=== PATIENT | male | born 2000 | race Caucasian/White ===

== ENCOUNTER 2023-12-03 16:45 | Outpatient (CLI) | payer MEDICARE, MEDICAID, SELFPAY ==
[2023-12-03 14:47] LABS: INR 1.1 (0.9-1.1); Prothrombin Time 11.1 sec (9.1-11.1)
== END 2023-12-03 16:46 | disposition home or self-care (01) ==
LOC: LBO 16:46
PROVIDERS: PCP Family Medicine; Visit Provider Family Medicine
DX: Z51.81 Encounter for therapeutic drug level monitoring (principal)
CPT/HCPCS: 36415; 85610

== ENCOUNTER 2023-12-06 03:46 | Outpatient (CLI) | payer MEDICARE, MEDICAID, SELFPAY ==
[2023-12-06 16:22] LABS: Prothrombin Time 10.2 sec (9.1-11.1)
== END 2023-12-06 03:47 | disposition home or self-care (01) ==
LOC: LBO 03:46
PROVIDERS: PCP Family Medicine; Visit Provider Family Medicine
DX: Z51.81 Encounter for therapeutic drug level monitoring (principal)
CPT/HCPCS: 36415; 85610

== ENCOUNTER 2023-12-08 11:01 | Emergency (ER) | payer MEDICARE, MEDICAID, SELFPAY ==
[2023-12-08 11:03] VITALS: BP 116/86; PULSE 89; RESP 14; TEMP 37; O2SAT 98
--- NOTE | 2023-12-08 11:20 | ED.GENADUL_ITS ---
Discharge Plan Disposition Patient Disposition: Home Condition: Stable Discharge Details Clinical Impression: Chest pain of uncertain etiology Primary Care Provider: Baldo Mcintosh ED Provider: Ryan Quick Home Meds and New Rx's Prescriptions: No Action Unable to Obtain Discharge Instructions Instructions: Cyclobenzaprine, Chest Pain, Adult ED Additional Instructions: You were seen in the emergency department for your left-sided chest pain, you have extensive clot history and are having trouble titrating up your Coumadin to an adequate INR. We did perform a CT scan which showed no pulmonary embolism, your labs are reassuring for no sign of severe infection, please follow-up with your primary care provider about the INR we gisella today and seek medication adjustment, otherwise please take 1000 mg of Tylenol every 6 hours for your left-sided chest pain that could be due to musculoskeletal chest pain or costochondritis. I have also sent you home with 3 tabs of a muscle relaxer of cyclobenzaprine, apply gentle heat to the area of pain, you may apply topical Voltaren gel which is an [id number] topical anti-inflammatory to the area of pain before trial of relief. Please return to the emergency department for failure to improve, worsening chest pain with shortness of breath, dizziness, diaphoresis or sweating, nausea, coughing up of blood, developing fever cough. Referrals: Baldo Mcintosh [Primary Care Provider] - Discharge Data Discharge Date/Time-TO BE ENTERED AT DEPARTURE: 12/08/23 15:01 HPI General Date/Time Provider Initiated Documentation: 12/08/23 11:20 . HPI Narrative: 23 year-old male presents to ED today by POV/ambulating with a chief complaint of left-sided chest pain with history of DVT this past May secondary to drug use with onset for the past few days affecting his sleep. Quality described as left-sided pleuritic chest pain, no radiation to tachycardia, shortness of breath endorsed sometimes, denies hemoptysis cough or fever. Severity is mellissa cribed as moderate. Palliating factors include nothing specific attempted. Provoking factors include nothing specific. Events leading up to the incident/Associated Symptoms: Patient is having difficulty titrating his INR with Coumadin dose changes managed by outpatient provider. Patient is anticoagulated. Related Data Home Medications ?Medication ?Instructions ?Recorded ?Confirmed Unknown [Unable to Obtain] 12/08/23 12/08/23 Allergies Allergy/AdvReac Type Severity Reaction Status Date / Time acetaminophen (From Tylenol) AdvReac Unknown Unknown Verified 12/08/23 11:10 ibuprofen (From Advil) AdvReac Unknown Unknown Verified 12/08/23 11:10 General Stated Complaint: Nk/Back Pain AILEEN: 4 Review of Systems All systems reviewed & are unremarkable except as noted in HPI and below Exam Narrative Exam Narrative: GENERAL APPEARANCE: Well-nourished, non-toxic, awake and alert, atraumatic, no acute distress. SKIN: Warm, pink, dry, intact, without rashes/lesions/ulcerations. HEAD: Normocephalic, atraumatic, normal hair distribution for gender/age. EYES: Normal conjunctiva, no exudates on lids/lashes. ENT: Nares patent, no circumoral cyanosis, no facial swelling NECK: Supple, trachea midline, painless cervical ROM. LUNGS/CHEST: Lungs CTA bilaterally- no rhonchi/rales/wheezes diffusely, no focally diminished or absent lung sounds, non-labored respirations, normal A/P diameter, symmetrical expansion, no chest wall deformity, L chest tenderness HEART (CV/PV): Regular rate and rhythm without murmur, no peripheral edema, no JVD. ABDOMEN: Soft, non-distended, no guarding. MSK: Normal ROM, no swelling/deformity to bilateral UEs or LEs, moving all extremities without weakness, no cyanosis, spine midline without tenderness, normal curvature. NEURO: Mental Status AAOx4 - alert to person, place, time, events No facial droop, no forehead involvement. Motor: No focal weakness - strength 5/5 in bilateral UEs and LEs, proximal and distal, symmetric. Sensory: sensation intact to light touch globally. Gait normal: patient ambulated without ataxia into ED room. PSYCH: euthymic, cooperative, pleasant, appropriate speech Course Vital Signs Vital signs: Vital Signs Temperature 37.0 C 12/08/23 11:03 Pulse 89 12/08/23 11:03 Respiratory Rate 14 12/08/23 11:03 Blood Pressure 116/86 12/08/23 11:03 Pulse Oximetry 98 12/08/23 11:03 Temperature 37.0 C 12/08/23 11:03 Temperature Source Skin 12/08/23 11:03 Pulse 89 12/08/23 11:03 Respiratory Rate 14 12/08/23 11:03 Blood Pressure 116/86 12/08/23 11:03 Pulse Oximetry 98 12/08/23 11:03 Oxygen Delivery Method Room Air 12/08/23 11:03 Oxygen Flow Rate 0 12/08/23 11:03 Pain Level 5 12/08/23 11:03 Medical Decision Making This dictation utilizes [id number] dictation software and may contain unedited grammatical errors. 23 year-old male presents to ED today by POV/ambulating with a chief complaint of left-sided chest pain with history of DVT this past May secondary to drug use with onset for the past few days affecting his sleep. Quality described as left-sided pleuritic chest pain, no radiation to tachycardia, shortness of breath endorsed sometimes, denies hemoptysis cough or fever. Severity is described as moderate. Palliating factors include nothing specific attempted. Provoking factors include nothing specific. Events leading up to the incident/Associated Symptoms: Patient is having difficulty titrating his INR with Coumadin dose changes managed by outpatient provider. Patients' medical history: History of DVT with fasciotomy to the leg. Family and social history: Noncontributory, denies current substance abuse. Pertinent exam findings / vital signs include no unilateral leg swelling or skin changes, has pleuritic left-sided chest pain without cardiac abnormality to auscultation, lungs CTA. Differential / pathologies of concern include PE, pneumothorax, pneumonia, costochondritis, ACS. Diagnostic studies of: -CBC, CMP, PT/PTT, troponin I, CTA of the chest, EKG -CBC without leukocytosis, baseline anemia -He is subtherapeutic on his Coumadin - INR -1.2 I recommend he follow-up with outpatient provider -CMP benign -Troponin negative with reliable onset -CTA shows no pulmonary embolism, no pneumothorax, no pneumonia -EKG shows sinus rhythm at 70 bpm with normal axis, normal intervals, no ST changes of ischemia, no [id number] Interventions of: -Recommend he trial topical Voltaren conservative pain management at home with hot compresses, provided muscle relaxer. ED Course/Assessment/Plan: 23-year-old male presents with left-sided chest tenderness and chest pain, he does have a history of DVT due to substance abuse, CT of the chest ruled out PE and he has no signs of infection or pneumonia or pneumothorax, troponin is negative and EKG is benign, I counseled the patient on likely costochondritis and conservative management at home with strict return criteria for further chest pain especially shortness of breath or hemoptysis, recommend he follow-up with his primary care provider for management on Coumadin dosing as he has been subtherapeutic on INR. Findings not consistent with PE, pneumonia, ACS, pneumothorax. Disposition of chest pain of uncertain etiology. Patient verbalized understanding of the plan and return to ED criteria and engaged in shared decision making. Medical Records Medical records reviewed: Yes I reviewed the patient's medical records. Imaging Data Radiologic Study: Attestation: I personally reviewed and interpreted this imaging study as follows: Imaging: CT Scan Radiologist's impression: EXAM: CT CHEST PE CTA CLINICAL HISTORY: L chest pain; hx DVT. TECHNIQUE: Imaging Protocol: Axial CT angiography was performed with multi- slice acquisition and multi-planar and/or 3D reconstructions. CONTRAST MATERIAL: Intravenous: Omnipaque 350 contrast volume:100 mL COMPARISON: No exams were available for comparison FINDINGS: Tracheobronchial tree: Patent where visualized. No bronchiectasis. Pulmonary parenchyma: No consolidation or dominant measurable mass. No architectural distortion. Pulmonary Arteries: No evidence of filling defect to suggest pulmonary emboli. Mediastinum and Fatimah: No dominant adenopathy or fluid collection. The esophagus is unremarkable. Visualized thyroid gland: Unremarkable. Pleura: There does appear to be a tiny right pleural effusion. No left pleural effusion. No pneumothorax. Heart: The heart is not dilated. No coronary artery calcifications are seen. No pericardial effusion. Aorta: Thoracic aorta non-dilated. No evidence of dissection. Upper abdomen: There is a 3.1 cm simple cyst at the tail of the pancreas. The spleen has a lobulated contour this may reflect prior trauma or surgery. Please correlate clinically. Soft tissues: Unremarkable. Bones: Within normal limits for the patient's age. IMPRESSION: 1. No evidence of pulmonary embolism, thoracic aortic dissection or aneurysm. 2. No acute pulmonary process. 3. Question of a tiny right pleural effusion. Lab Data Lab results reviewed: Yes I reviewed the patient's lab results. Labs: Laboratory Tests Range/Units 12/08/23 12/08/23 12:28 12:28 WBC (4.4-10.8) 10^3/uL 5.04 RBC (4.36-5.78) 10^6/uL 4.17 L Hgb (13.5-17.5) g/dL 11.2 L Hct (40.0-50.0) % 36.8 L MCV (80-95) fL 88 MCH (27.0-33.0) pg 26.9 L MCHC (32.0-36.0) % 30.4 L RDW (11.8-14.1) % 14.6 H Plt Count (130-400) 10^3/uL 679 H MPV (8.0-11.0) fL 8.4 Immature Gran % % 1.2 Neutrophils % % 44.0 Lymphocytes % % 36.3 Monocytes % % 16.1 Eosinophils % % 1.2 Basophils % % 1.2 Nucleated RBC % (0.0-0.3) % 0.0 Absolute Neutrophils (1.2-6.7) 10^3/uL 2.22 Absolute Lymphocytes (1.2-3.4) 10^3/uL 1.83 Absolute Monocytes (0.1-0.8) 10^3/uL 0.81 H Absolute Eosinophils (0.0-0.7) 10^3/uL 0.06 Absolute Basophils (0.0-0.2) 10^3/uL 0.06 PT (9.1-11.1) sec 12.3 H INR (0.9-1.1) 1.2 H APTT (23.6-32.8) sec 27.3 Sodium (136-145) mmol/L 142 Potassium (3.5-5.1) mmol/L 3.6 Chloride (98-107) mmol/L 109 H Carbon Dioxide (21.0-32.0) mmol/L 26.8 Anion Gap (3-11) mmol/L 6.2 BUN (7-18) mg/dL 9 Creatinine (0.70-1.30) mg/dL 1.0 Est GFR (CKD-EPI 2020) (mL/min/1.73m2) 107.78 Glucose (74-106) mg/dL 91 Calcium (8.5-10.1) mg/dL 8.5 Total Bilirubin (0.2-1.0) mg/dL 0.16 L AST (15-37) U/L 9 L ALT (16-63) U/L 15 L Alkaline Phosphatase (46-116) U/L 65 Troponin I (< or =60) ng/L < 50 Cancelled Total Protein (6.4-8.2) g/dL 6.5 Albumin (3.4-5.0) g/dL 2.0 L Quality:SDOH Health Related Social Needs: No Data to Display PFSH All Active Problems (Updated 12/08/23 @ 14:47 by ALTHEA Lopez) Chest pain of uncertain etiology (Acute) Social History Smoking/Tobacco Use Status: Current every day Tobacco Type: cigarettes and e- cigarettes Smoking risk assessment performed?: Yes Alcohol Intake: former Substance use type: does not use Housing: other Do you feel safe at home: Yes Do you feel safe in your relationship?: Yes
--- NOTE | 2023-12-08 11:30 | DI.CT_ITS ---
Exam(s) CT CHEST PE CTA EXAM: CT CHEST PE CTA CLINICAL HISTORY: L chest pain; hx DVT. TECHNIQUE: Imaging Protocol: Axial CT angiography was performed with multi-slice acquisition and mu lti-planar and/or 3D reconstructions. CONTRAST MATERIAL: Intravenous: Omnipaque 350 contrast volume:100 mL COMPARISON: No exams were available for comparison FINDINGS: Tracheobronchial tree: Patent where visualized. No bronchiectasis. Pulmonary parenchyma: No consolidation or dominant measurable mass. No architectural distortion. Pulmonary Arteries: No evidence of filling defect to suggest pulmonary emboli. Mediastinum and Fatimah: No dominant adenopathy or fluid collection. The esophagus is unremarkable. Visualized thyroid gland: Unremarkable. Pleura: There does appear to be a tiny right pleural effusion. No left pleural effusion. No pneumot horax. Heart: The heart is not dilated. No coronary artery calcifications are seen. No pericardial effusion. Aorta: Thoracic aorta non-dilated. No evidence of dissection. Upper abdomen: There is a 3.1 cm simple cyst at the tail of the pancreas. The spleen has a lobulate d contour this may reflect prior trauma or surgery. Please correlate clinically. Soft tissues: Unremarkable. Bones: Within normal limits for the patient's age. IMPRESSION: 1. No evidence of pulmonary embolism, thoracic aortic dissection or aneurysm. 2. No acute pulmonary process. 3. Question of a tiny right pleural effusion. RADIATION DOSE DELIVERED: Total DLP DATA REPOSITORY: All CT scans at this facility are submitted to the National Radiology Data Registry (NRDR) Dose Index Registry (DIR) with the [employer] ([employer]). RADIATION OPTIMIZATION: All CT scans at this facility use at least one of these dose optimization te chniques: automated exposure control; mA and/or kV adjustment per patient size (includes targeted exa ms where dose is matched to clinical indication); or iterative reconstruction.
--- NOTE | 2023-12-08 11:30 | RT.EKG_ITS ---
APPROVED REPORT Exam: Resting ECG Reason for Exam: L chest pain Patient Location: E HR:78 bpm ECG Measurements Heart Rate 78 AXIS SD 146 P 23 QRSd 93 QRS 42 QT 343 T 49 QTc 391 Conclusion Sinus rhythm 78 normal axis no stemi
[2023-12-08 12:35] LABS: Abs Immature Grans 0.06 10^3/uL (0.0-0.06); Absolute Basophil Count 0.06 10^3/uL (0.0-0.2); Absolute Eosinophil Count 0.06 10^3/uL (0.0-0.7); Absolute Lymphocyte Count 1.83 10^3/uL (1.2-3.4); Absolute Monocyte Count 0.81 10^3/uL (0.1-0.8); Absolute Neutrophil Count 2.22 10^3/uL (1.2-6.7); Basophils % 1.2 %; Eosinophils % 1.2 %; HCT 36.8 % (40.0-50.0); HGB 11.2 g/dL (13.5-17.5); Immature Grans % 1.2 %; Lymphocytes % 36.3 %; MCH 26.9 pg (27.0-33.0); MCHC 30.4 % (32.0-36.0); MCV 88 fL (80-95); MPV 8.4 fL (8.0-11.0); Monocytes % 16.1 %; RBC 4.17 10^6/uL (4.36-5.78); RDW 14.6 % (11.8-14.1); RDW-SD 47.3 fL; WBC 5.04 10^3/uL (4.4-10.8)
[2023-12-08 12:48] LABS: INR 1.2 (0.9-1.1); PTT Activated 27.3 sec (23.6-32.8); Prothrombin Time 12.3 sec (9.1-11.1)
[2023-12-08 12:52] LABS: Platelet Count 679 10^3/uL (130-400)
[2023-12-08 13:00] LABS: ALT 15 U/L (16-63); AST 9 U/L (15-37); Alkaline Phosphatase 65 U/L (46-116); Anion Gap 6.2 mmol/L (3-11); BUN 9 mg/dL (7-18); Bilirubin, Total 0.16 mg/dL (0.2-1.0); CO2 26.8 mmol/L (21.0-32.0); Calcium 8.5 mg/dL (8.5-10.1); Chloride 109 mmol/L (98-107); Estimated GFR 107.78 (mL/min/1.73m2); Glucose 91 mg/dL (74-106); Potassium 3.6 mmol/L (3.5-5.1); Sodium 142 mmol/L (136-145); Total Protein 6.5 g/dL (6.4-8.2); Troponin I < 50 ng/L (< or =60)
[2023-12-08] MEDS: Omnipaque 350 MG/ML 100 ML BTL IJ (13:50)
[2023-12-08] MEDS: Cyclobenzaprine 10 MG TAB, 3 TABS/BTL PO (15:01)
== END 2023-12-08 15:01 | disposition home or self-care (01) ==
PROVIDERS: Emergency Provider Physician Assistant; PCP Family Medicine
DX: R07.9 Chest pain, unspecified (principal); Z79.01 Long term (current) use of anticoagulants; Z86.718 Personal history of other venous thrombosis and embolism
CPT/HCPCS: 36415; 71275; 80053; 93005; 99285; 84484; 85025; 85610; 85730; 93010; 99282; J3490

== ENCOUNTER 2023-12-10 01:50 | Outpatient (CLI) | payer MEDICARE, MEDICAID, SELFPAY ==
[2023-12-10 12:12] LABS: INR 1.5 (0.9-1.1); Prothrombin Time 14.5 sec (9.1-11.1)
== END 2023-12-10 01:51 | disposition home or self-care (01) ==
LOC: LBO 01:50
PROVIDERS: PCP Family Medicine; Visit Provider Family Medicine
DX: Z51.81 Encounter for therapeutic drug level monitoring (principal)
CPT/HCPCS: 36415; 85610